=== PATIENT | female | born 1965 | race African-American/Black ===

== ENCOUNTER → 2020-03-04 12:06 | Outpatient (CLI) | payer OTHER, MEDICAID, SELFPAY ==
[2020-03-04 12:59] LABS: Ammonia (NH3) < 9 umol/L (9-30)
[2020-03-05 05:07] LABS: Valproic Acid (Depakene) Total 70 ug/mL (50-100)
== END ==
PROVIDERS: Family Provider Internal Medicine Cardiovascular Disease; PCP Internal Medicine Cardiovascular Disease; Referring Provider Psychiatry & Neurology Neurology; Visit Provider Psychiatry & Neurology Neurology
DX: Z51.81 Encounter for therapeutic drug level monitoring (principal); R79.89 Other specified abnormal findings of blood chemistry; E55.9 Vitamin D deficiency, unspecified
CPT/HCPCS: 36415; 80164; 82140; 82652